=== PATIENT | male | born 1955 | race American Indian/Alaskan Native ===

== ENCOUNTER 2016-12-03 09:43 | Outpatient (CLI) | payer BC ==
[2016-12-03 10:39] LABS: Alanine Aminotransferase 28 units/L (7-56); Albumin/Globulin Ratio 1.1 %; Alkaline Phosphatase 78 units/L (35-129); Anion Gap 13 mmol/L; Bilirubin,Total 0.4 mg/dL (0.1-1.2); Blood Urea Nitrogen 14 mg/dL (9-20); Calcium 8.8 mg/dL (8.4-10.2); Carbon Dioxide 27 mmol/L (22-30); Chloride 100.7 mmol/L (98-107); Glucose 97 mg/dL (75-100); Sodium 137 mmol/L (137-145); Total Protein 7.5 g/dL (6.3-8.2)
[2016-12-03 20:13] LABS: Cholesterol 240 mg/dL (50-199); HDL Cholesterol 36 mg/dL (40-59); LDL Cholesterol,Direct 183 mg/dL (50-130); Triglycerides 105 mg/dL (2-149)
== END 2016-12-03 09:44 | disposition home or self-care (01) ==
LOC: LAB 09:43
PROVIDERS: ATTEND Internal Medicine
DX: E78.2 Mixed hyperlipidemia (principal)
CPT/HCPCS: 36415; 80053; 80061

== ENCOUNTER 2017-03-29 13:39 | Outpatient (CLI) | payer BC ==
[2017-03-29 14:10] LABS: Alanine Aminotransferase 39 units/L (7-56); Albumin 4.2 g/dL (3.9-5); Albumin/Globulin Ratio 1.2 %; Alkaline Phosphatase 77 units/L (35-129); Anion Gap 17 mmol/L; BUN/Creatinine Ratio 14.44; Blood Urea Nitrogen 13 mg/dL (9-20); Carbon Dioxide 26 mmol/L (22-30); Chloride 100.2 mmol/L (98-107); Cholesterol 168 mg/dL (50-199); Glucose 89 mg/dL (75-100); HDL Cholesterol 31 mg/dL (40-59); LDL Cholesterol,Direct 122 mg/dL (50-130); Potassium 4.3 mmol/L (3.6-5.0); Sodium 139 mmol/L (137-145); Total Protein 7.8 g/dL (6.3-8.2); Triglycerides 77 mg/dL (2-149)
== END 2017-03-29 13:40 | disposition home or self-care (01) ==
LOC: LAB 13:39
PROVIDERS: ATTEND Internal Medicine
DX: I10 Essential (primary) hypertension (principal); E78.2 Mixed hyperlipidemia; I25.10 Atherosclerotic heart disease of native coronary artery without angina pectoris; E78.00 Pure hypercholesterolemia, unspecified; Z87.891 Personal history of nicotine dependence
CPT/HCPCS: 36415; 80053; 80061

== ENCOUNTER 2017-06-04 11:00 | Outpatient (CLI) | payer BC | END 2017-06-04 11:01 | disposition home or self-care (01) | LOC: SLR 11:00 | PROVIDERS: ATTEND Internal Medicine | DX: G47.30 Sleep apnea, unspecified (principal) | CPT/HCPCS: 95810 ==

== ENCOUNTER 2017-10-21 09:23 | Outpatient (CLI) | payer BC ==
[2017-10-21 10:05] LABS: Alanine Aminotransferase 24 units/L (7-56); Albumin 4.2 g/dL (3.9-5); BUN/Creatinine Ratio 13; Blood Urea Nitrogen 12 mg/dL (9-20); Calcium 8.8 mg/dL (8.4-10.2); Chol/HDL Ratio 6.69 %; HDL Cholesterol 36 mg/dL (40-59); Hemolysis Index 15; LDL Cholesterol,Direct 187 mg/dL (50-130)
== END 2017-10-21 09:24 | disposition home or self-care (01) ==
LOC: LAB 09:23
PROVIDERS: ATTEND Internal Medicine
DX: I10 Essential (primary) hypertension (principal); E78.2 Mixed hyperlipidemia; I25.10 Atherosclerotic heart disease of native coronary artery without angina pectoris; Z87.891 Personal history of nicotine dependence
CPT/HCPCS: 36415; 80053; 80061

== ENCOUNTER 2019-12-29 09:32 | Outpatient (CLI) | payer BC ==
[2019-12-29 09:58] LABS: Hematocrit 43.3 % (35.5-45.6); Hemoglobin 14.6 gm/dl (11.8-15.2); Mean Corpuscular HGB Conc 34 % (32-34); Mean Corpuscular Volume 83 fl (84-94); Platelet Count 180 K/mm3 (140-440); Red Blood Count 5.24 M/mm3 (3.65-5.03); Red Cell Distribution Width 15.1 % (13.2-15.2)
[2019-12-29 10:22] LABS: Alanine Aminotransferase 39 units/L (7-56); Albumin 4.2 g/dL (3.9-5); BUN/Creatinine Ratio 17; Blood Urea Nitrogen 17 mg/dL (9-20); Hemolysis Index 6
== END 2019-12-29 09:33 | disposition home or self-care (01) ==
LOC: LAB 09:32
PROVIDERS: ATTEND Internal Medicine
DX: Z00.00 Encounter for general adult medical examination without abnormal findings (principal); Z12.5 Encounter for screening for malignant neoplasm of prostate
CPT/HCPCS: 36415; 80053; 84153; 84443; 85027

== ENCOUNTER 2020-12-24 09:56 | Outpatient (CLI) | payer BC ==
[2020-12-24 11:07] LABS: Alanine Aminotransferase 30 units/L (7-56); Albumin 4.1 g/dL (3.9-5); BUN/Creatinine Ratio 16; Blood Urea Nitrogen 14 mg/dL (9-20); Calcium 9.3 mg/dL (8.4-10.2); Chol/HDL Ratio 6.13 %; HDL Cholesterol 43 mg/dL (40-59); Hemolysis Index 2; LDL Cholesterol,Direct 205 mg/dL (50-130)
== END 2020-12-24 09:57 | disposition home or self-care (01) ==
LOC: LAB 09:56
PROVIDERS: ATTEND Internal Medicine
DX: I10 Essential (primary) hypertension (principal); E78.2 Mixed hyperlipidemia; R73.03 Prediabetes
CPT/HCPCS: 36415; 80053; 80061; 83036

== ENCOUNTER 2021-04-16 08:35 | Outpatient (CLI) | payer BC ==
[2021-04-16 09:19] LABS: Eosinophils # (Auto) 0.5 K/mm3 (0.0-0.4); Eosinophils % (Auto) 8.4 % (0.0-4.3); Hematocrit 42.6 % (35.5-45.6); Hemoglobin 14.1 gm/dl (11.8-15.2); Lymphocytes # (Auto) 1.8 K/mm3 (1.2-5.4); Lymphocytes % (Auto) 33.1 % (13.4-35.0); Mean Corpuscular HGB Conc 33 % (32-34); Mean Corpuscular Volume 84 fl (84-94); Monocytes # (Auto) 0.8 K/mm3 (0.0-0.8); Monocytes % (Auto) 13.9 % (0.0-7.3); Platelet Count 183 K/mm3 (140-440); Red Blood Count 5.05 M/mm3 (3.65-5.03); Red Cell Distribution Width 15.1 % (13.2-15.2)
[2021-04-16 09:26] LABS: Alanine Aminotransferase 37 units/L (7-56); Albumin 4.5 g/dL (3.9-5); BUN/Creatinine Ratio 18; Blood Urea Nitrogen 14 mg/dL (9-20); Calcium 9.3 mg/dL (8.4-10.2); HDL Cholesterol 39 mg/dL (40-59); Hemolysis Index 6; LDL Cholesterol,Direct 204 mg/dL (50-130)
[2021-04-16 11:31] LABS: Chol/HDL Ratio 6.56 %
== END 2021-04-16 08:36 | disposition home or self-care (01) ==
LOC: LAB 08:35
PROVIDERS: ATTEND Internal Medicine
DX: E78.2 Mixed hyperlipidemia (principal); I10 Essential (primary) hypertension
CPT/HCPCS: 36415; 80053; 80061; 85025

== ENCOUNTER 2021-08-06 13:01 | Outpatient (CLI) | payer BC ==
--- NOTE | 2021-08-06 14:31 | XRay Report ---
XR spine thoracic 3V INDICATION / CLINICAL INFORMATION: BACK PAIN. COMPARISON: None available. FINDINGS: BONES/JOINT(S): No acute fracture or subluxation. Mild diffuse spondylosis with small anterior and la teral osteophytes. SOFT TISSUES: No significant abnormality. ADDITIONAL FINDINGS: None. Signer Name: Milton Canales MD Signed: 08/06/2021 2:26 PM Workstation Name: [id number]
== END 2021-08-06 13:02 | disposition home or self-care (01) ==
LOC: XRAY 13:01
PROVIDERS: ATTEND Nurse Practitioner
DX: M47.814 Spondylosis without myelopathy or radiculopathy, thoracic region (principal); M25.78 Osteophyte, vertebrae
CPT/HCPCS: 72072

== ENCOUNTER 2021-08-27 13:24 | Outpatient (CLI) | payer BC ==
--- NOTE | 2021-08-27 19:29 | Magnetic Resonance Report ---
MRI LUMBAR SPINE WITHOUT CONTRAST INDICATION / CLINICAL INFORMATION: LOW BACK PAIN,UNSPECIFIED. TECHNIQUE: Multisequence, multiplanar images of the lumbar spine were obtained. COMPARISON: CT abdomen pelvis 04/27/2016 FINDINGS: POSTOPERATIVE CHANGES:None ALIGNMENT: Mild retrolisthesis of L4 with respect to L5 is noted. There is a mild rightward curvature the lumbar spine without definite scoliosis. No additional abnormalities of alignment are identified . VERTEBRAE:No suspicious regions of abnormal bone marrow signal intensity are identified. DISC MORPHOLOGY: Widespread disc desiccation is present throughout the lumbar region. VISUALIZED SPINAL CORD: Distal thoracic spinal cord, conus and nerve roots of the cauda equina all baptiste ve an unremarkable appearance. Conus terminates at about the level of L1-2 intervertebral disc. [id number] ANALYSIS: L1-2: Disc desiccation is noted. A high signal annular fissure is present near the 6:00 position. Thi s is associated with a small central disc protrusion which flattens the thecal sac slightly. Central spinal canal and neuroforamina are adequately maintained. L2-3: Disc desiccation is noted. Broad-based disc bulge flattens the thecal sac slightly. There is a superimposed left lateral recess disc protrusion contributing to left lateral recess stenosis. Facet arthritic changes are observed. There is a moderate degree of central canal stenosis with decreased C SF signal intensity in the thecal sac at the L2-3 level. L3-4: Disc desiccation is noted. Broad-based disc bulge is evident. There is a small superimposed [place] tral disc protrusion. Bilateral facet arthritic changes are noted and there is thickening of ligament um flavum. Moderate central canal stenosis is evident at the L3-4 level. The L3 nerve root neuroforam chris is mildly narrowed on the left. L4-5: Advanced disc desiccation is noted with near complete loss of disc height. Broad-based disc bul ge with superimposed central disc protrusion flattens the thecal sac slightly. Bilateral facet arthri tic changes are noted. Mild narrowing of the central spinal canal is demonstrated without definite ce ntral canal stenosis. Mild right-sided L4 nerve root neuroforaminal narrowing is observed. L5-S1: Loss of disc height is noted. Anterior and bilateral lateral osteophyte formation is observed. Broad-based disc bulge flattens the thecal sac slightly. Bilateral facet arthritic changes are obser felicia. Central spinal canal is adequate in size at the lumbosacral junction. Loss of disc height, facet arthritic change and broad-based disc bulge contribute to severe bilateral foraminal stenosis at the L5 nerve root level. A similar degree of neuroforaminal stenosis was evident on CT abdomen pelvis . PARASPINAL SOFT TISSUES: Evaluation of the paraspinous soft tissues reveals no definite abnormalities . ADDITIONAL FINDINGS: None. IMPRESSION: 1. Widespread lumbar spondylosis. 2. Moderate central canal stenosis L2-3 and L3-4 levels. 3. Severe bilateral foraminal stenosis L5 nerve root level. Signer Name: Eduardo Bland MD Signed: 08/27/2021 7:25 PM Workstation Name: [id number]
== END 2021-08-27 13:25 | disposition home or self-care (01) ==
LOC: MRI 13:24
PROVIDERS: ATTEND Orthopaedic Surgery
DX: M47.816 Spondylosis without myelopathy or radiculopathy, lumbar region (principal); M43.16 Spondylolisthesis, lumbar region; M48.061 Spinal stenosis, lumbar region without neurogenic claudication
CPT/HCPCS: 72148